=== PATIENT | female | born 1965 | race Asian ===

== ENCOUNTER 2018-12-06 10:00 | Day surgery (SDC) | payer OTHER ==
[2018-12-06] MEDS ORDERED: MIDAZOLAM 1 MG/ML 2 ML INJ (12:08)
[2018-12-06] MEDS ORDERED: FENTAnyl 50 MCG/ML VIAL (12:08)
== END 2018-12-06 12:16 | disposition home or self-care (01) ==
LOC: GIL 10:00
DX: K92.1 Melena (principal); K64.8 Other hemorrhoids; K51.90 Ulcerative colitis, unspecified, without complications; E11.9 Type 2 diabetes mellitus without complications; I10 Essential (primary) hypertension
CPT/HCPCS: 45380; 88305